=== PATIENT | female | born 1950 | race Caucasian/White ===

== ENCOUNTER → 2021-02-27 | Outpatient (CLI) | payer MEDICARE | LOC: MAMO 14:46 | DX: Z12.31 Encounter for screening mammogram for malignant neoplasm of breast (principal) | CPT/HCPCS: 77063; 77067 ==

== ENCOUNTER → 2022-03-03 | Outpatient (CLI) | payer MEDICARE | LOC: MAMO 15:00 | DX: Z13.1 Encounter for screening for diabetes mellitus (principal) | CPT/HCPCS: 77063; 77067 ==